=== PATIENT | male | born 1995 | race Two or more races ===

== ENCOUNTER 2020-05-16 23:15 | Emergency (ER) | payer SELFPAY ==
[~2020-05-16] VITALS: Ht 167.6 cm; Wt 58.5 kg
--- NOTE | 2020-05-16 23:52 | NUR ---
at bedside for assessment
[2020-05-17] MEDS ORDERED: IBUPROFEN 600 MG TABLET PO ONE (00:30)
[2020-05-17] MEDS ORDERED: IBUPROFEN 600 MG TABLET ONE (00:36)
[2020-05-17 00:49] LABS: BASOPHILS % (AUTO) 0.3 % (0.0-2.0); EOSINOPHILS # (AUTO) 0.3 K/uL (0.0-0.7); EOSINOPHILS % (AUTO) 4.8 % (0.0-7.0); HEMATOCRIT 33.4 % (36.7-47.1); HEMOGLOBIN 10.7 g/dL (12.5-16.3); LYMPHOCYTES # (AUTO) 2.2 K/uL (20.0-40.0); LYMPHOCYTES % (AUTO) 40.3 % (20.5-51.5); MEAN CORPUSCULAR HEMOGLOBIN 26.9 uug (23.8-33.4); MEAN CORPUSCULAR HGB CONC 32 g/dL (32.5-36.3); MEAN CORPUSCULAR VOLUME 83.6 fL (73.0-96.2); MONOCYTES # (AUTO) 0.5 K/uL (2.0-10.0); MONOCYTES % (AUTO) 9.8 % (0.0-11.0); NEUTROPHILS # (AUTO) 2.4 K/uL (1.8-8.9); NEUTROPHILS % (AUTO) 44.8 % (38.5-71.5); PLATELET COUNT (AUTO) 343 K/uL (152-348); RED BLOOD CELL COUNT(AUTO) 3.99 MIL/uL (4.06-5.63); WHITE BLOOD COUNT (AUTO) 5.4 K/uL (3.6-10.2)
[2020-05-17 00:52] LABS: CREATININE 0.9 mg/dL (0.6-1.3); POTASSIUM 3.6 mmol/L (3.5-5.1)
[2020-05-17] MEDS ORDERED: SILVER SULFADIAZINE 1% CREAM 50 GM TP ONE (02:30)
[2020-05-17] MEDS ORDERED: SILVER SULFADIAZINE 1% CREAM 25 GM TUBE TP ONE (02:38)
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
[2020-05-17 03:42] VITALS: BP 126/72
--- NOTE | 2020-05-17 03:42 | NUR ---
Patient given written and verbal discharge instructions. Patient verbalizes understanding of instructions. Patient is ambulatory with steady gait. Refuses offer of [facility] placement. Patient given list of available shelters in surrounding area.
== END 2020-05-17 03:44 | disposition home or self-care (01) ==
LOC: ER 23:22
DX: T25.022D Burn of unspecified degree of left foot, subsequent encounter (principal); T25.021D Burn of unspecified degree of right foot, subsequent encounter; X08.8XXD Exposure to other specified smoke, fire and flames, subsequent encounter
CPT/HCPCS: 16020; 36415; 85025

== ENCOUNTER 2020-05-17 22:59 | Emergency (ER) | payer SELFPAY ==
[~2020-05-17] VITALS: Ht 167.6 cm; Wt 58.5 kg
--- NOTE | 2020-05-17 23:03 | NUR ---
at bedside for assessment
[2020-05-17] MEDS ORDERED: SILVER SULFADIAZINE 1% CREAM 25 GM TUBE TP ONE (23:14)
[2020-05-17] MEDS ORDERED: SILVER SULFADIAZINE 1% CREAM 50 GM TP ONE (23:15)
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
--- NOTE | 2020-05-18 00:08 | NUR ---
Patient given written and verbal discharge instructions. no signs of acute distress. able to ambulate steadily. Patient verbalizes understanding of instructions. Patient is ambulatory with steady gait. Refuses offer of prison placement. Patient given list of available shelters in surrounding area.
[2020-05-18 00:10] VITALS: BP 131/86
== END 2020-05-18 00:11 | disposition home or self-care (01) ==
LOC: ER 23:02
DX: T25.221D Burn of second degree of right foot, subsequent encounter (principal); X08.8XXD Exposure to other specified smoke, fire and flames, subsequent encounter; T31.0 Burns involving less than 10% of body surface; Z59.0 Homelessness
CPT/HCPCS: A4663

== ENCOUNTER 2020-05-19 21:06 | Emergency (ER) | payer SELFPAY ==
[~2020-05-19] VITALS: Ht 167.6 cm; Wt 58.5 kg
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
== END 2020-05-19 22:17 | disposition left against medical advice (07) ==
LOC: ER 21:08
DX: Z75.3 Unavailability and inaccessibility of health-care facilities (principal)